=== PATIENT | male | born 1950 | race Caucasian/White ===

== ENCOUNTER 2025-04-11 12:58 | Outpatient (RCR) | payer OTHER, SELFPAY ==
--- NOTE | 2025-04-11 14:48 | CTCCONSULT_ITS ---
[facility] [address] [place], [place] [address] Consultation Note Date: 04/11/2025 MR#: [id number] Name: JONNY VILLANUEVA : 1950 Dx: C34.12 Malignant neoplasm of upper lobe, left bronchus or lung Referring physician. [facility] Reason for consultation. Patient with left upper lobe adenocarcinoma. History of Present Illness: Patient is a 74-year-old gentleman with diagnosis of left upper lobe adenocarcinoma, initial diagnosis made March 16, 2021 via transthoracic needle biopsy moderate differentiated adenocarcinoma. Patient received chemotherapy at [facility] and at [facility] radiation therapy 6 weeks worth for reported stage III cancer.. Patient achieved complete remission. PET/CT on 12/28/2024 however revealed 1.8 x 1.1 cm SUV 7.4 left upper lobe nodule and also subcentimeter left hilar lymph node measuring 0. 7 x 0.5 cm. Patient is generally feeling well. Patient referred for SBRT. Past Medical History: History of asthma allergies chickenpox COPD prior radiation therapy Meds. Levothyroxine Dulera inhalation albuterol Spiriva reds 2 nebulizer Family history. Father had lung cancer scan sensor brother had breast cancer Social History: Patient [place] lives with daughter in [place]. No longer smokes drinks 1-2 beers per month Review of Systems: Has a difficulty hearing ringing in the ears easy bruising shortness of breath with exertion no problems eating Physical Exam: General: Well-appearing gentleman in no acute distress HEENT: Atraumatic no cephalic extraocular muscle intact no oral lesion no cervical or supraclavicular adenopathy. CV: Chest clear to auscultation heart regular rate and rhythm ABD: Soft and organomegaly tenderness EXT: No signs of clubbing or edema Assessment:1. Patient with history of adenocarcinoma stage III left upper lobe treated with chemoradiation 2020 in [place]. 2. Most recent PET scan 12/28/2024 shows recurrence in left upper lobe and adjacent hilar area. 3. These look small enough and amendable to SBRT. 4. We shall move forward with CT SIM planning using [address] and make recommendations. We anticipate giving 5000 cGy in 5 fractions over 5-week duration.. 5. Thank you very much for allowing me to evaluate and manage this patient Cc: LAZARO Vernon Electronically signed by: Willie Melvin MD, DABR 04/11/2025 2:45 PM
--- NOTE | 2025-04-11 14:49 | CTCTXPLN_ITS ---
[facility] [place] [address] [place], [place] [address] Physician Clinical Treatment Planning Note Date of Service: 04/11/2025 Name: JONNY VILLANUEVA : 1950 The patient has agreed to proceed with Radiation therapy. Tests and supporting medical records were interpreted to assist in defining the tumor location and extent of disease. Further imaging will be necessary to contour and delineate the volume to which the XRT will be provided. A. Treatment Intent: Curative B. Modality: 6 MV C. Requested Technique: SBRT D. Treatment Site: Left chest E. Critical structures to be contoured on plan: F. In order to accomplish this plan, I am ordering/Prescribing the followin. Simulations (s) will be performed to accomplish a reproducible treatment position, to determine optimal treatment portals/beam arrangements, to design beam modifying devices and verify treatment portals on patient prior to the commencement of Radiation Therapy. Left chest 2. Devices; for immobilization and beam shaping: Vac-Lorena 3. CT Guidance for placement of XRT eisenbegr Scan area: 4. Portal images Frequency: 5. Invivo transit dose measurement once per week on all VMAT patients. 6. Special Physics Consult Requested for: SBRT 7. Other requests: Special procedure SBRT G. Dose Objectives: Curative Electronically signed by: Willie Melvin M.D. 04/11/2025 2:46 PM
--- NOTE | 2025-04-11 14:53 | CTCTXPLNST_ITS ---
Radiation Oncology Treatment Planning Sheet Name: JONNY VILLANUEVA MR#: [id number] : 1950 Dx: C34.12 Malignant neoplasm of upper lobe, left bronchus or lung Date of Service: 04/11/2025 Account #: ?? Pt Treatment Intent: curative palliative other: Stage: Procedure CPT # Ordered Spec. Procedure 27187 SBRT 1 Rob Complex (set-up) [address] T2 ? T 8 1 Rob Simple 89308 IMRT Plan 04187 1` MLC Devices VMAT 16375 6 Rob 3 D 78440 TRTMT dev Complex 58352 vaklok 1 TRTMT dev simple 77124 Basic Jerson 92953 7 Special Dosimetry 26980 Spec Physics 76499 1` Port Films 72680 SRS Cranial/1FX 27291 SBR 5 FX or Less /ex: 5 = 5 fx 60285 5000 5 IMRT Simple 52346 IMRT Complex 37007 IGRT 89637 5 Rad del com 6-10 69345 Rad del com 11- 38866 Cont Med Physics 65314 5 Treatment Planning 38080 1 Rad del com 20 mev 51629 Rad del inter 6 56560 Rad del inter 10-02 37040 Rad del simple 610 53242 Rad del simple 10-02 35717 Special Port Plan 61531 TRTMT dev inter 26926 Isodose Complex 11071 Isodose simple 65254 Resp Motion Mgmt Simulation 04001 Placement of Fiducial Markers 30339 Electronically Signed By: Willie Melvin MD, DABR 04/11/2025 2:50 PM
== END 2025-04-13 23:59 | disposition home or self-care (01) ==
LOC: SCTC 12:58
PROVIDERS: PCP Physician Assistant; Referring Provider Radiology Therapeutic Radiology; Visit Provider Radiology Therapeutic Radiology
DX: C34.12 Malignant neoplasm of upper lobe, left bronchus or lung (principal)
CPT/HCPCS: 77470; 99213; G0463

== ENCOUNTER 2025-05-07 10:53 | Outpatient (RCR) | payer OTHER, SELFPAY ==
--- NOTE | 2025-04-24 18:40 | CTCSNOTE_ITS ---
[facility] [address] [place], [place] [address] [place] Simulation Note Date: 04/24/2025 MR# [id number] Name: JONNY VILLANUEVA : 1950 (A) DIAGNOSIS: C34.12 Malignant neoplasm of upper lobe, left bronchus or lung (B) Patient was placed in supine position and used vaklok for immobilization purposes. (C) CT slices included chest (D) SBRT Will be needed for maximum sparing of adjacent normal critical structures. (E) Patient tolerated the simulation well and left the room in good condition. Electronically signed by: Willie Melvin MD, LINOR 04/24/2025 6:38 PM
== END 2025-05-13 23:59 | disposition home or self-care (01) ==
LOC: SCTC 10:53
PROVIDERS: PCP Physician Assistant; Referring Provider Physician Assistant; Visit Provider Radiology Therapeutic Radiology
DX: Z51.0 Encounter for antineoplastic radiation therapy (principal); C34.12 Malignant neoplasm of upper lobe, left bronchus or lung
CPT/HCPCS: 77014; 77290; 77300; 77301; 77334; 77338; 77373

== ENCOUNTER 2025-06-11 10:46 | Outpatient (RCR) | payer OTHER, SELFPAY ==
--- NOTE | 2025-05-14 12:21 | CTCTRTNOTE_ITS ---
[facility] [address] [place], [place] [address] Weekly Management Date: 05/14/2025 ?? Name: JONNY VILLANUEVA : 1950 Account #: ?? A. Patient is currently at 2000 cGy. Left upper lobe lesion. B. Patient is tolerating treatment well. Re[facility] records from [facility] radiation department with he had SBRT to the left upper lobe lesion 5000 cGy in 4 fractions between 03 02 21 through 03 05 21 Patient then received 6000 cGy in standard fractionation in 30 fractions between 09/02/2021 through 10/14/2021 which treated both the upper lobes as well as the hilar area. I have asked Dr. Murphy Burnett to do physics consult to make sure that our current treatments are safe to both the left upper lobe areas which treats the brachial plexus area as well as the hilar area which is treating the esophageal region. Electronically signed by: Willie Melvin M.D. 05/14/2025 12:18 PM
--- NOTE | 2025-05-14 12:22 | CTCTXPLNST_ITS ---
Radiation Oncology Treatment Planning Sheet Name: JONNY VILLANUEVA MR#: [id number] : 1950 Dx: C34.12 Malignant neoplasm of upper lobe, left bronchus or lung Date of Service: 05/14/2025 Account #: ?? Pt Treatment Intent: curative palliative other: Stage: Procedure CPT # Ordered Spec. Procedure 46723 Rob Complex (set-up) 90811 Rob Simple 20352 IMRT Plan 08860 MLC Devices VMAT 03920 Rob 3 D 61633 TRTMT dev Complex 24772 TRTMT dev simple 31197 Basic Jerson 43269 Special Dosimetry 27337 Spec Physics 79757 Two prior treatments two different centers regarding overlap of critical strcutures. 2 Port Films 06033 SRS Cranial/1FX 47199 SBR 5 FX or Less /ex: 5 = 5 fx 54710 IMRT Simple 56388 IMRT Complex 14768 IGRT 55938 Rad del com 6-10 11405 Rad del com 11- 93032 Cont Med Physics 16471 Treatment Planning 49506 Rad del com 20 mev 66812 Rad del inter 6-10 17469 Rad del inter 11- 40664 Rad del simple 6-10 27915 Rad del simple 11-19 07580 Special Port Plan 11389 TRTMT dev inter 49427 Isodose Complex 64992 Isodose simple 52316 Resp Motion Mgmt Simulation 19225 Placement of Fiducial Markers 36825 Electronically Signed By: Willie Melvin MD, LINOR 05/14/2025 12:19 PM
== END 2025-06-13 23:59 | disposition home or self-care (01) ==
LOC: SCTC 10:46
PROVIDERS: PCP Physician Assistant; Referring Provider Physician Assistant; Visit Provider Radiology Therapeutic Radiology
DX: Z51.0 Encounter for antineoplastic radiation therapy (principal); C34.12 Malignant neoplasm of upper lobe, left bronchus or lung
CPT/HCPCS: 77300; 77301; 77336; 77338; 77373

== ENCOUNTER 2025-06-18 10:40 | Outpatient (RCR) | payer OTHER, SELFPAY ==
--- NOTE | 2025-06-18 16:17 | CTCTRTNOTE_ITS ---
[facility] [address] [place], [place] [address] Weekly Management Date: 06/18/2025 ?? Name: JONNY VILLANUEVA : 1950 A. Patient is currently at 4500 cGy. B. Patient is tolerating treatment well. C. Patient completes XRT to the chest. Will see the patient again in 1 month. Electronically signed by: Willie Melvin M.D. 06/18/2025 4:15 PM
== END 2025-07-14 23:59 | disposition home or self-care (01) ==
LOC: SCTC 10:40
PROVIDERS: PCP Physician Assistant; Referring Provider Physician Assistant; Visit Provider Radiology Therapeutic Radiology
DX: Z51.0 Encounter for antineoplastic radiation therapy (principal); C34.12 Malignant neoplasm of upper lobe, left bronchus or lung
CPT/HCPCS: 77373

== ENCOUNTER 2025-07-17 10:49 | Outpatient (RCR) | payer OTHER, SELFPAY ==
--- NOTE | 2025-07-17 11:50 | CTCTSUMM_ITS ---
[facility] [address] [place], [place] [address] Treatment Summary Date: 07/17/2025 MR#: [id number] Name: JONNY VILLANUEVA : 1950 Dx: C34.12 Referring Physician: LAZARO Vernon (A) Diagnosis: [ICD10] C34.12 Malignant neoplasm of upper lobe, left bronchus or lung (B) Aim of Treatment: ??Curative (C) Concomitant Chemotherapy: No (D) Radiation Dates: Patient was treated to left left hilar area 05/21/2025 05/28/2025 06/04/2025 06/11/2025 and 06/18/2025 and left apex 05/07/2025 05/14/2025 and Treatment Prescription L hilar SBRT_2 Arcs 6 MV PHOT 4,500 cGy 5 900 cGy Approved L APEX SBRT_4 Arcs 6 MV PHOT 2,000 cGy 2 1,000 cGy Approved (E) All eisenberg were treated using customized MLC Blocks (F) Finding at Discharge: Patient seen for first follow-up and appeared well tolerated treatments well. (G) Discharge Instructions and F/U Appt was given: The patient was also advised to continue follow-up with MA and primary care physician: Another PET scan will be ordered. C: LAZARO Vernon Electronically signed by: Willie Melvin MD, LINOR 07/17/2025 11:48 AM
== END 2025-08-13 23:59 | disposition home or self-care (01) ==
LOC: SCTC 10:49
PROVIDERS: PCP Physician Assistant; Referring Provider Physician Assistant; Visit Provider Radiology Therapeutic Radiology
DX: C34.12 Malignant neoplasm of upper lobe, left bronchus or lung (principal)
CPT/HCPCS: 99212; G0463

== ENCOUNTER → 2025-10-01 | Outpatient (CLI) | payer OTHER, SELFPAY ==
--- NOTE | 2025-10-01 10:15 | XR_ITS ---
EXAMINATION: PET/CT FUSION SKULL TO THIGH EXAM DATE AND TIME: October 01, 2025, 1155 hours, comparison December 28, 2024 INDICATIONS: Diagnosis lung cancer, restaging post treatment CTDI:vol (mGy) 5.95 DLP: (mGycm) , 543.50 PROCEDURE: 13.8 mCi FDG was administered intravenously To allow for distribution and uptake of radiotracer, the patient was allowed to rest quietly in a shielded room. Imaging was performed on an integrated 16-slice PET/CT scanner, with scanning from the skull base to the mid thigh. Serum blood glucose at the time of the injection was measured 98 mg/dL. CT scanning was performed without oral or intravenous contrast material. FINDINGS: Head and Neck: There is no bharati hypermetabolism in the neck. The visualized portions of the brain are normal in appearance on CT. Chest: Weakly hypermetabolic 33 x 42 mm masslike area at the left apex Probable scarring in the left perihilar region axial image 93 Abdomen and Pelvis: There is no bharati hypermetabolism in retroperitoneal or pelvic chains. The spleen is normal in size and FDG avidity. Musculoskeletal: Marrow uptake is within normal range. IMPRESSION: Stable weakly hypermetabolic left apical disease, approximately 33 x 42 mm
== END | disposition home or self-care (01) ==
LOC: CDIM 09:16
PROVIDERS: Referring Provider Nurse Practitioner Primary Care; Visit Provider Nurse Practitioner Primary Care
DX: C34.90 Malignant neoplasm of unspecified part of unspecified bronchus or lung (principal)
CPT/HCPCS: 78815; A9552

== ENCOUNTER 2025-10-16 13:45 | Outpatient (RCR) | payer OTHER, SELFPAY ==
--- NOTE | 2025-10-17 14:53 | CTCFLWUP_ITS ---
[facility] [address] [place], [place] [address] FOLLOW-UP NOTE Date: 10/16/2025 MR#: [id number] Name: JONNY VILLANUEVA : 1950 Dx: C34.12 Malignant neoplasm of upper lobe, left bronchus or lung Identification. Patient with left upper lobe adenocarcinoma 5000 cGy in 4 fractions 03/02/2021 through 03/05/2021 SBRT left apex in [place]. Patient then received 6000 cGy in 30 fractions 09/02/2021 through 11/03/2021 at [facility]. chemoradiation. PET scan 12/28/2024 revealed 1.8 x 1.1 cm SUV 17.4 along with subcentimeter left hilar lymph node 0.7 x 0.5 cm. Received 4500 cGy in 5 fractions to the left hilar in 2000 cGy in 2 fractions to the left apex region. Completed 06/18/25. Posttreatment PET 10/01/2025 showed stable weakly hypermetabolic left apical disease approximately 33 x 42 mm. There was no activity in the left hilar area. I believe he responded reasonably well overall and he is doing well clinically. Patient reported he has another PET scan to be scheduled by Janeen WILLIS in 6 months and I will see him again in 4 months. Electronically signed by: Willie Melvin M.D. 10/17/2025 2:50 PM
== END 2025-11-13 23:59 | disposition home or self-care (01) ==
LOC: SCTC 13:45
PROVIDERS: PCP Nurse Practitioner Primary Care; Referring Provider Nurse Practitioner Primary Care; Visit Provider Radiology Therapeutic Radiology
DX: C34.12 Malignant neoplasm of upper lobe, left bronchus or lung (principal); Z92.3 Personal history of irradiation
CPT/HCPCS: 99213; G0463